=== PATIENT | female | born 1990 | race Caucasian/White ===

== ENCOUNTER 2020-02-29 13:38 | Emergency (ER) | payer MEDICAID ==
[~2020-02-29] VITALS: Ht 160 cm; Wt 91.6 kg
[2020-02-29 14:15] VITALS: BP 109/69
[2020-02-29] MEDS ORDERED: KETOROLAC TROMETH 60MG/2ML VIAL IM ONE (16:00)
== END 2020-02-29 16:24 | disposition home or self-care (01) ==
LOC: ER 13:38
DX: J40 Bronchitis, not specified as acute or chronic (principal); J06.9 Acute upper respiratory infection, unspecified; Z90.49 Acquired absence of other specified parts of digestive tract
CPT/HCPCS: 71046; 81002; 81025; 96372; 99283; J1885